=== PATIENT | male | born 1990 | race Caucasian/White ===

== ENCOUNTER 2018-02-23 20:07 | Emergency (ER) | payer BC ==
[~2018-02-23] VITALS: Ht 185.4 cm; Wt 88.5 kg
[~2018-02-23 20:07] MED LIST: BIPOLAR MED; CEPH500 PO; HYDACE5 PO; LIDO2L MM; LORA1 PO; META800 PO; OXYACE5T PO; PENVK500 PO; Percocet 5-3251 EACH PO; SULTRIDS PO
== END 2018-02-23 21:50 | disposition home or self-care (01) ==
LOC: ER 20:07
DX: H10.9 Unspecified conjunctivitis (principal)
CPT/HCPCS: 99282

== ENCOUNTER → 2019-10-12 | Outpatient (CLI) | payer SELFPAY | LOC: LAB SHORT 15:31 → LAB EV 15:31 | DX: L02.01 Cutaneous abscess of face (principal) | CPT/HCPCS: 87070; 87075; 87077; 87186; 87205 ==

== ENCOUNTER 2023-10-28 08:29 | Emergency (ER) | payer OTHER ==
[~2023-10-28] VITALS: Ht 182.9 cm; Wt 86.2 kg
[2023-10-28] MEDS ORDERED: Ibuprofen 400 MG Tab PO ONE (08:50)
[2023-10-28] MEDS ORDERED: Methocarbamol 500 MG Tab PO ONE (08:50)
[2023-10-28] MEDS ORDERED: dexAMETHasone 4 MG TAB PO ONE (08:50)
[2023-10-28] MEDS ORDERED: Acetaminophen 500 MG Tab PO ONE (08:50)
[2023-10-28] MEDS ORDERED: Voltaren100 GM TOP (08:57)
[2023-10-28] MEDS ORDERED: METPRE4DP PO (08:57)
[2023-10-28] MEDS ORDERED: Robaxin750 MG PO (08:57)
[2023-10-28 08:59] VITALS: BP 152/106
== END 2023-10-28 09:12 | disposition home or self-care (01) ==
LOC: ER 08:29
DX: S16.1XXA Strain of muscle, fascia and tendon at neck level, initial encounter (principal); X58.XXXA Exposure to other specified factors, initial encounter; Y99.0 Civilian activity done for income or pay
CPT/HCPCS: 99283; A9270